=== PATIENT | female | born 1955 | race Caucasian/White ===

== ENCOUNTER 2023-09-20 06:22 | Day surgery (SDC) | payer MEDICARE, OTHER, SELFPAY ==
[2023-09-14 12:48] VITALS: BMI 32.7
[2023-09-20] VITALS (13 sets, daily range): BP systolic 96–125; BP diastolic 48–83; PULSE 67–94; RESP 10–20; TEMP 36.1–36.7; O2SAT 90–98; BMI 31.9
--- NOTE | 2023-09-20 | PATH_ITS ---
[facility] Accession Number: [id number] No. of containers..01 Tissue . 01 Material submitted: . uterus - UTERUS, CERVIX, BILATERAL FALLOPIAN TUBES AND OVARIES, CYST . 01 Diagnosis: UTERUS, CERVIX, BILATERAL FALLOPIAN TUBES AND OVARIES, CYSTS (WEIGHT OF DISRUPTED SPECIMEN 68 GRAMS): Cervix with focal parakeratosis and with patchy involvement by low grade squamous intraepithelial lesion / JOELLE-1 in the anterior and posterior cervix. Endocervix with no significant histomorphologic abnormality. Endometrium with features of cystic atrophy; negative for endometrioid intraepithelial neoplasia or malignancy. Myometrium involved by adenomyosis. Uterine serosa with no significant histomorphologic abnormality. Left fallopian tube, complete cross-section; negative for significant atypia (features of previous tubal ligation present at gross examination). Right fallopian tube, complete cross-section, with two benign paratubal cysts (2 mm and 3 mm); negative for significant atypia (features consistent with previous tubal ligation present at gross examination). Left ovary with no significant histomorphologic abnormality. Right ovary with scattered benign inclusion cysts and no significant histomorphologic abnormality. [facility] 09/27/2023 1002 Local . 01 Electronically signed: . Chela Nolasco MD, Pathologist NPI- [id number] . 01 Gross description: . Received in formalin with two identifiers and uterus, cervix, tubes and ovaries, and cyst, is a previously opened uterus opened along the anterior surface (68 grams, 7.7 cm from superior to inferior, 5.1 cm from medial to lateral, 3.2 cm anterior to posterior) with attached cervix (reapproximated to measures 3.0 x 3.0 cm), left tube (4.7 x 0.4 cm), left ovary (4 grams, 3.4 x 1.6 x 1.3 cm), right fallopian tube (4.1 x 0.5 cm), and right ovary (2 grams, 3.1 x 1.1 x 1.1 cm). . The ectocervix is melvin and wrinkled with a cervical os disrupted by previous opening of the specimen. The anterior paracervical margin is inked blue while the posterior paracervical margin is inked black. . The endocervical canal has melvin, herringbone mucosa, and measures 2.4 cm in length. The endometrial cavity is reapproximated to measure 2.2 cm from cornu to cornu, and 3.0 cm in length with melvin, roughened endometrium that averages 0.1 cm thick. . The myometrium is melvin, moderately trabeculated, and measures up to 1.7 cm in maximum thickness with no distinct lesions grossly identified. . The left tube has melvin smooth serosa with no cysts identified. The lumen is stellate and discontinuous, consistent with previous tubal ligation. The left ovary has a melvin, cerebriform external surface with an unremarkable physiologic cut surface with no lesions identified. . The right tube has melvin, smooth serosa with two cystic structures ranging from 0.2 to 0.3 cm in greatest dimension, filled with cloudy serous fluid. The lumen is stellate and discontinuous, consistent with previous tubal ligation. The right ovary has a melvin, cerebriform external surface, and the cut surface is physiologic and unremarkable with no lesions identified. . Placing Judge sections are submitted as follows: A1: Anterior cervix. A2: Posterior cervix. A3: Anterior full thickness section. A4: Posterior full thickness section. A5: Left fallopian tube to include one-half of bisected fimbriae and cross sections. A6: Left ovary. A7: Right fallopian tube to include one-half of bisected fimbriae and cross sections. A8: Right ovary. ([id number]) . . The remaining cervix is submitted as follows: A9-A15: Anterior cervix. A16-A18: Posterior cervix. ([id number]) /MRV 09/24/20232033 Local . 01 Pathologist provided ICD-10: N81.4, N81.10, N81.6, N39.3 . 01 CPT . 540585 Specimen Comment: A courtesy copy of this report has been sent to [phone] Performed at: 01 [facility] [address], [place], [place] [id number] MD Russell Blevins MD Phone: [phone]
[2023-09-20] MEDS: LACTATED RINGERS 1,000 ML 21 ML IV ×2 (07:01→09:42)
--- NOTE | 2023-09-20 07:11 | PM.PREOP ---
Pre-operative Note Interval Note History & Physical reviewed/Exam performed by Physician: Yes Changes to H&P: No H&P completed within 30 days and has changed as indicated here:: 09/08/23
--- NOTE | 2023-09-20 07:19 | SUR.OPER ---
Lithotomy on padded OR bed. Scofield Pad Positioner under torso. Head on pillow, arms padded and tucked at sides. Legs secured in padded yellow fins stirrups.
[2023-09-20] MEDS: FAMOTIDINE 20 MG/2 ML VIAL IV (07:30)
[2023-09-20] MEDS: CEFAZOLIN 2 GM/100 ML PREMIX 100 ML IV (07:45)
[2023-09-20] MEDS: BUPIVACAINE 0.25% (PF) 30 ML, EPINEPHrine 0.15 MG INJ (09:27)
--- NOTE | 2023-09-20 11:21 | PM.GYNOP.1 ---
Operative Date/Time/Diagnoses Date of procedure: 09/20/23 Time of procedure: 11:21 Pre-op diagnosis: Uterine prolapse Cystocele Rectocele Stress urinary incontinence Post-op diagnosis: same Procedure & Clinicians Procedure: Procedures Operation Date: 09/20/23 07:45 Actual Procedure Side Surgeon p Laparoscopic Assisted Vaginal Hysterectomy, Bilateral Salpingo-Oophorectomy Bilateral MD tyler Mohan Anterior/Posterior Repair MD tyler Mohan Tensionless Vaginal Tape, Cystoscopy Bethany Parrish MD Indications: 68-year-old 3 para 2 with symptomatic uterine prolapse, cystocele, and rectocele. She also has stress urinary incontinence with an increased urethrovesical angle. Surgeon: Bethany Parrish Circular Distributor: Julee Chen Anesthesia Type: General and Local Operative Notes Findings: 7 week size prolapsed uterus Normal tubes and ovaries Normal appendix Normal liver Third degree cystocele Third degree rectocele Second degree uterine prolapse Increased urethrovesical angle Closure Type: primary Specimen(s): left tube & ovary, right tube & ovary and uterus Applied: catheter (to continuous drainage) and other (Betadine moistened vaginal packing) Estimated blood loss (mL): 200 Blood products transfused: none Procedure in detail: The patient was taken to the operating room where she was placed in the dorsal supine position. After adequate general endotracheal anesthesia was achieved, she was placed in the dorsal lithotomy position, and prepped and draped in the usual sterile fashion. A timeout was performed. A bivalve speculum was placed into the vagina, and a single-tooth tenaculum was placed on the anterior lip of the cervix. The cervical os was sequentially dilated until the ZUMI uterine manipulator could pass easily into the endometrial cavity. The single-tooth tenaculum was removed from the anterior lip of the cervix, and the bivalve speculum was removed from the vagina. Attention was then turned to the abdomen where 4 mL of quarter percent Marcaine with epinephrine were injected in the umbilical fold. A 5 mm incision was made. The Veress needle was placed into the peritoneal cavity, and its placement confirmed by aspiration and drop test. The abdominal cavity was insufflated with 3.4L of CO2. The Veress needle was removed, and a 5 mm trocar was placed without difficulty. Initial inspection of the pelvis revealed the findings noted above. 2 other incisions were made 4 cm lateral to the umbilicus after 4 cc of 0.25% Marcaine with epinephrine were injected. These were 5 mm incisions. Two 5 mm trocars were placed under direct visualization. The right tube and ovary were grasped with an atraumatic grasper. The infundibulopelvic ligament on the right side was cauterized and cut with the power seal. The round ligament and broad ligament were cauterized and cut. This was continued to the level of the uterine arteries. This was repeated on the patient's left side. The instruments were removed from the abdomen. The abdominal field was covered with sterile blue towels. Attention was then turned to the vagina where the ZUMI uterine manipulator was removed from the uterus. The cervix was grasped with a 4 tooth tenaculum. 10 mL of quarter percent Marcaine with epinephrine were injected circumferentially around the cervix. The cervix was circumscribed. The bladder and rectum were dissected off the lower uterine segment and cervix with an open moistened Ray-Destin. The peritoneum was entered sharply with the Metzenbaum scissors anteriorly and a [place] placed. The peritoneum was entered posteriorly with the Metzenbaum scissors and the long weighted speculum was placed into the posterior cul-de-sac. The uterosacral cardinal ligament complexes were clamped, transected, and suture ligated with 0 Vicryl. These were attached to hemostat. The uterine arteries were clamped, transected, and suture ligated with 0 Vicryl. The uterus, tubes, and ovaries were handed off for specimen. The vaginal cuff was closed with 0 Vicryl with a series of simple interrupted sutures. The tagged sutures were cut. 2 Allis clamps were placed at the apex of the cystocele. 4 mL of half percent Marcaine with epinephrine were injected and an incision was made with a #10 blade between the 2 Allis clamps. Wide Allis clamps were placed on the midline of the cystocele approximately 5. 6 cc of 0.25% Marcaine with epinephrine were injected below the mucosa on either side. The mucosa was undermined using the Metzenbaum scissors and the mucosa incised in the midline moving the wide Allis clamps to the edges of the mucosa. The mucosa was dissected off the underlying fascia using an open moistened Ray-Destin and a #10 blade. The fascia was reapproximated with 0 Vicryl with a series of horizontal mattress sutures. The excess vaginal mucosa was excised. The mucosa was closed using simple interrupted sutures with 2-0 Vicryl including the underlying fascia to close the space. The weighted speculum was removed from the vagina. Allis clamps were placed at the mucocutaneous junction at the introitus. 4 mL of quarter percent Marcaine with epinephrine were injected. An incision was made with a #10 blade between the 2 Allis clamps, and a triangular piece of skin and underlying subcutaneous tissue was removed. Allis clamps were placed in the midline of the rectocele. 10 mL of quarter percent Marcaine with epinephrine were injected submucosally. The mucosa was undermined using the Metzenbaum scissors and the mucosa incised in the midline, moving the wide Allis clamps to the mucosal edges. The underlying fascia was dissected off of th mucosa using an open moistened Ray-Destin and a #10 blade. The fascia was reapproximated using 0 Vicryl with a series of horizontal mattress sutures. The excess vaginal mucosa was excised. The mucosa was closed using a series of simple interrupted sutures with 2-0 Vicryl including the underlying fascia to close the space. On the perineum 0 Vicryl was used to reapproximate the levator muscle. The subcutaneous layer was closed with 2-0 Vicryl. The skin was closed with 3-0 chromic in a subcuticular fashion. Hemostasis was achieved. The bladder was empty. 100 mL of the dilute quarter percent Marcaine with epinephrine were placed into the space of Retzius behind the pubic symphysis. A weighted speculum was placed into the vagina. 2 Allis clamps were placed lateral to the urethral meatus approximately 1 cm distal. 3 mL of a dilute quarter percent Marcaine were placed submucosally. A 1 cm incision was made 1 cm away from the urethral meatus. This was dissected out laterally with the Metzenbaum scissors. A rigid catheter was placed into the bladder. With the bladder neck retracted away from the patient's right side 10 mL of the dilute local were placed aiming towards the patient's right shoulder up behind the pubic symphysis. This was repeated on the patient's left side, with the bladder neck retracted away from the patient's left side. After the TVT was loaded and with the bladder neck retracted away from the patient's right side the TVT was directed towards the patient's shoulder on the right side, perforating the urogenital diaphragm, and then directed up behind the pubic symphysis and the introducer came out approximately 2 cm lateral to the midline on the left side. A small 3 mm jared in the skin was made and the introducer was brought up and grasped with a Craig. This was repeated on the patient's left side with the bladder neck retracted away from the patient's left side. The rigid portion of the catheter was removed. The bladder was filled with 500 mL of sterile saline. A cystoscopy was performed and there was no introducer visible in the bladder. The 2 introducers were pulled up with care not to over tighten the TVT. The TVT was cut below the skin edge, with care not to over tighten. Blue scissors were placed between the TVT and urethra to prevent tension. The mucosa was closed with 3-0 Vicryl with a running interlocking suture. Hemostasis was achieved. Dermabond was placed over the suprapubic incisions. A Betadine moistened vaginal packing was placed. The Dotson was hooked up to a bag. A rectal exam was performed and there were no sutures palpable. Gloves were changed. Attention was then turned back to the abdomen. The abdomen was again insufflated with approximately 3.5 L of CO2. The vaginal cuff was examined. There was a small amount of old blood in the cul de sac. This was aspirated and then irrigated. Hemostasis was achieved. The instruments were removed from the abdomen. The CO2 was allowed to escape. The incisions were repaired with 4-0 Monocryl in a subcuticular fashion. Steri-Strips and Allevyn dressing were placed over the laparoscopy incisions. Sponge, laps, and instrument counts were correct x-2. The patient tolerated the procedure well, and was taken to PACU in stable condition. Complications: none Post-operative Condition: stable Disposition: PACU Plan for aftercare: To Acute care after recovery
[2023-09-20] MEDS: ACETAMINOPHEN 325 MG TABLET 650 MG PO ×3 (11:38→23:31)
[2023-09-20] MEDS: OXYCODONE IR 5 MG TABLET PO ×2 (11:41→21:41)
[2023-09-20] MEDS: LACTATED RINGERS 1,000 ML 75 ML IV (13:20)
--- NOTE | 2023-09-20 14:21 | PC.NURSE ---
Patient arrives to room 215 this afternoon. She is A&OX4, VSS, afebrile on RA. She has a uriostegui catheter in place draining clear light yellow urine. X3 lap sites to abdomen with allevyn C/D/I. She reports pain 2/10. No bleeding noted to seth pad. She tolerates soup and popsicle well, denies n/v.SCD's in place, call light in reach, bed alarm on, continuous pulse ox
[2023-09-20] MEDS: IBUPROFEN 600 MG TABLET PO ×2 (16:30→23:30)
[2023-09-20] MEDS: DOCUSATE 100 MG CAPSULE 200 MG PO (21:34)
[2023-09-21 01:23] VITALS: BP 107/41; PULSE 76; RESP 16; TEMP 36.8; O2SAT 97
[2023-09-21] MEDS: LACTATED RINGERS 1,000 ML 75 ML IV (02:11)
[2023-09-21 05:12] VITALS: BP 108/52; PULSE 66; RESP 16; TEMP 36.3; O2SAT 96
[2023-09-21] MEDS: IBUPROFEN 600 MG TABLET PO ×2 (06:06→11:12)
[2023-09-21] MEDS: ACETAMINOPHEN 325 MG TABLET 650 MG PO ×2 (06:06→11:12)
[2023-09-21 06:33] LABS: Add Manual Diff / Slide Review NO; Basophils Absolute Auto 0 /uL (0-100); Basophils Percent Auto 0.2 % (0-2); Eosinophils Absolute Auto 0 /uL (0-450); Eosinophils Percent Auto 0.2 % (2-4); Hematocrit 30.6 % (36-46); Hemoglobin 10.3 g/dL (12.0-16.0); Lymphocytes Absolute Auto 1800 /uL (1100-4500); Lymphocytes Percent Auto 19.1 % (25-40); Mean Corpuscular HGB Conc 33.7 % (30-36); Mean Corpuscular Hemoglobin 31.6 PG (26-34); Mean Corpuscular Volume 93.8 fL (80-100); Monocytes Absolute Auto 600 /uL (0-900); Monocytes Percent Auto 6.7 % (3-14); Neutrophils Absolute Auto 7000 /uL (1500-7000); Neutrophils Percent Auto 73.8 % (50-75); Platelet Count 259 X10^3/uL (150-400); Red Blood Cell Count 3.26 X10^6/uL (4.0-5.2); Red Cell Distribution Width 13.3 % (11.6-14.8); White Blood Cell Count 9.5 X10^3/uL (4.5-11.0)
[2023-09-21 08:28] VITALS: BP 128/56; PULSE 64; RESP 16; TEMP 35.9; O2SAT 97
[2023-09-21] MEDS: DOCUSATE 100 MG CAPSULE 200 MG PO (09:44)
--- NOTE | 2023-09-21 13:04 | PC.NURSE ---
Addendum entered by Mana Polk R.N. 09/21/23 13:07: RN escorts her with to private vehicle this afternoon at 1245 for discharge home. Original Note: Patient is A&Ox4, VSS, afebrile on RA. She reports pain is well controlled 3-4/10 to abdomen. Incisions to abdomen with allevyn x3 c/d/i. She had uriostegui catheter and vaginal packing removed at 0600 this a.m. and is up to the BR to void from [id number]. She is able to void 400 cc with PVR of 400+. MD notified and re encouraged patient to void after breakfast. After sitting for 20 minutes she is able to void 800cc. PVR is 30cc. She ambulates around the room independently and denies distress, or severe discomfort. MD arrives at bedside later this a.m. and clears patient for discharge home. Patient verbalizes understanding of discharge instructions including medications, activity limitations, site care, s/sx of infection and follow up care appointment.
--- NOTE | 2023-09-21 14:28 | CM.DANOTE ---
Patient is a 68 yo female who was admitted on 09/20/23 for Uterine Prolapse. Pt has ENDOGENX and Chlorogen for insurance and her PCP is Colleen Spaulding. EMR was reviewed. Per OBGYN, pt with planned surgery and no hx of admits at [facility] and tolerated procedure well and now tolerating diet, voiding independently and ambulating and medically stable to d/c home today with outpt f/u and no identified barriers to discharge. Per RN, pt wanting to discharge home today and no concerns noted. Patient lives in [place] with her and independent at baseline and confirms spouse available for assist if needed but pt does not anticipate any needs and preference is home today via spouse POV. HERB Kerr Discharge Planning/Care Management Pre-Anesthesia Assessment Start: 09/14/23 12:48 Freq: Status: Complete Protocol: Document 09/14/23 12:48 CAB (Rec: 09/14/23 12:51 CAB [id number]) Pre-Anesthesia Assessment Patient Information Reviewed Via Chart Review Primary Care Provider Colleen Spaulding Seen Specialist in Last 12 Months Yes Specialist Seen Gold Cutter Primary Language Yi Circular Knitter Helper Required No Height 168.91 cm Weight 93.44 kg Body Mass Index (BMI) 32.7 Barriers to Learning None Hx Anesthesia Reactions No Anesthesia Review Requested No Enterprise Account Manager No alcohol intake current alcohol intake frequency holidays/special occasions only Smoking Status Former smoker Patient is completely paralyzed or No completely immobile Mental Status Oriented to own ability Is patient on oxygen? No Hx Sleep Apnea No Currently Taking a Beta Guru No Anti-Coagulant Therapy No Cardiac Testing No Hx Pacemaker/ICD No Pacemaker Rep Required? No Cardiac Clearance Received No Bladder Pattern Incontinent, Stress Urinary Catheter Present No Hx Urinary Self Catheterization No Diabetes No Patient No Lactating No Marital Status Patient Discharge Plan Description Return Home
--- NOTE | 2023-09-23 06:45 | PM.DS.1 ---
History of Present Illness History of Present Illness Date Patient Seen: 09/21/23 Time Patient Seen: 10:45 Chief complaint: OPB Narrative: Patient is a 68-year-old postop day # 1 status post LAVH/BSO/anterior-posterior repair/TVT with cystoscopy. She had her Dotson catheter and vaginal packing removed at 6:00 a.m.. She initially voided 400 and 50 cc but had a 400+ postvoid residual. She voided again soon thereafter and voided 400 cc with a 37 cc postvoid residual. She has tolerated a diet. She is ambulating without assistance. Her pain is well controlled. No nausea or vomiting. Discharge Providers Provider Discharge Date: 09/21/23 Primary care physician: Colleen Spaulding MD Discharge provider: Bethany Parrish MD Summary Hospital Course Discharge Diagnosis: Uterine prolapse Cystocele and rectocele Stress urinary incontinence Hospital Course: Patient is a 68-year-old who underwent an LAVH/BSO/anterior-posterior repair/TVT with cystoscopy on September 20, 2023 without complication. On postop day # 1 her Dotson catheter and vaginal packing were removed at 6:00 a.m.. She initially had high postvoid residuals but then these decreased to acceptable range of 30 cc. She was tolerating a diet. Pain is well controlled. She was ambulating without assistance. No nausea or vomiting. She was discharged home on postop day #1 after a bladder trial. Status at Discharge Cognitive/behavioral status at discharge: oriented Functional status at discharge: independent ambulation Overall status at discharge: patient is progressing back to baseline Time Spent with Patient Time spent: Less than 30 minutes Exam Vital Signs (past 8 hours): Oxygen Delivery Method Room Air Oxygen Flow Rate 0 Narrative Exam Narrative: Generally: Patient is sitting up in chair, no acute distress Lungs: Clear to auscultation bilaterally Cardiovascular: Regular rate and rhythm Abdomen: Soft, good bowel sounds Incisions: Clean dry and intact with Allevyn dressings Extremities: No edema Objective Labs 09/21/23 06:20 [facility] Medical History (Updated 09/20/23 @ 07:10 by Bethany Parrish MD) Near sighted Mumps Measles Chicken pox Anemia Tinnitus Heavy menstrual period Hemorrhoid Colon polyps Hypertension Pelvic relaxation Vaginal atrophy Surgical History (Updated 07/08/23 @ 18:55 by Amy Shine) Anesthesia History of tubal ligation (~1989) [place] teeth extracted Hx laparoscopic cholecystectomy Family History (Updated 07/08/23 @ 18:57 by Amy Shine) Father Hypertension Stroke Mother Diabetes mellitus History of heart disease Hyperlipidemia Hypertension Brother Diabetes mellitus History of heart disease Hypertension Brother Cancer History of heart disease Hyperlipidemia Sister Hypertension Social History household members: spouse Smoking Status: Former smoker alcohol intake: current Discharge Assessment & Plan Assessment and Plan Assessment: Postop day # 1 status post LAVH/BSO/anterior-posterior repair/TVT with cystoscopy, doing very well Patient passed a bladder trial Plan of Treatment: Discharge to home Follow-up as scheduled in 2 weeks Patient is to void every 2-1/2-3 hours and once through the night She is to call with fever, chills, redness or drainage around the incisions, bleeding vaginally more than spotting to light, or if she is unable to void. Discharge Plan Discharge Plan Patient Disposition: Home Provider Discharge Comment: Call with fever, chills, redness or drainage around the incisions, or bleeding vaginally more than spotting to light Ibuprofen 600 mg every 6 hours as needed Tylenol 650 mg every 6 hours as needed Stool softeners or prune juice Discharge orders & Medications Discharge Orders: Discharge (Order); Ordered 09/21/23 Ordered By: Bethany Parrish Prescriptions: New oxycodone 5 mg tablet 5 mg PO Q6H PRN (Reason: pain) Qty: 14 0RF Continued telmisartan-amlodipine [Twynsta] 80-10 mg tablet 1 tab PO DAILY atorvastatin 20 mg tablet 20 mg PO BEDTIME Discontinued estradiol [Yuvafem] 10 mcg tablet 10 mcg vaginal 2XW Qty: 14 1RF atorvastatin 10 mg tablet 10 mg PO DAILY No Action multivitamin Tablet 1 tab PO DAILY coenzyme Q10 [Co Q-10] 10 mg Capsule 10 mg PO DAILY omeprazole 20 mg Tablet,Delayed Release (Dr/Ec) 20 mg PO DAILY Follow up/Referrals: Bethany Parrish MD [Physician] - (Patient already has to postop visits scheduled) Colleen Spaulding MD [Primary Care Provider] - Diet/Activity/Treatments Diet: Diet as Tolerated Activity: No heavy lifting Nothing in the vagina for 6 weeks Skin/Wound/Dressing Care Report to your healthcare provider any signs of infection, such as:: chills, fever, increased pain, unusual drainage and unusual redness Dressing: Remove outer pink dressings with attached gauze in 3 days after morning shower May shower daily Visit Report/Discharge Packet Instructions: Cystocele and Rectocele Repair, DI for Hysterectomy, DI for Laparoscopy, Urethral Suspension -- Sling Procedure, DI for Prescription Opioid Use Stand Alone Forms: Patient Portal/API, Surgery Discharge Discharge Data Primary Care Provider: Colleen Spaulding Attending Provider: Bethany Parrish VTE Deep Vein Thrombosis/Pulmonary Embolism Present on Admission: No
== END 2023-09-21 12:45 | disposition home or self-care (01) ==
LOC: OR 06:24 → ED 12:14 → AC 12:16
PROVIDERS: PCP Family Medicine; Referring Provider Obstetrics & Gynecology; Visit Provider Obstetrics & Gynecology
PROC: 0UT9FZZ Resection of Uterus, Via Natural or Artificial Opening With Percutaneous Endoscopic Assistance (ICD-10-PCS; CPT 58552; principal; 2023-09-20 07:45)
PROC: (CPT 58552; 2023-09-20 07:45)
PROC: 0TSD0ZZ Reposition Urethra, Open Approach (ICD-10-PCS; CPT 58552; 2023-09-20 07:45)
DX: N81.3 Complete uterovaginal prolapse (principal); N39.3 Stress incontinence (female) (male)
CPT/HCPCS: 58552; 57288; 57260; 36415; 82962; 85025; C1771; J0171; J0330; J0690; J1100; J2405; J2704; J3010